=== PATIENT | female | born 1965 | race Native Hawaiian/Other Pacific Islander ===

== ENCOUNTER 2018-01-09 23:46 | Emergency (ER) | payer OTHER ==
[~2018-01-09] VITALS: Ht 160 cm; Wt 56.7 kg
[2018-01-10 01:46] VITALS: BP 146/82
== END 2018-01-10 01:35 | disposition home or self-care (01) ==
LOC: ER 23:46
DX: S61.412A Laceration without foreign body of left hand, initial encounter (principal); W26.8XXA Contact with other sharp object(s), not elsewhere classified, initial encounter; Y92.89 Other specified places as the place of occurrence of the external cause; Y99.0 Civilian activity done for income or pay; Y99.8 Other external cause status

== ENCOUNTER → 2018-01-23 | Outpatient (CLI) | payer OTHER ==
[~2018-01-23] VITALS: Ht 157.5 cm; Wt 56.7 kg
[~2018-01-23] MED LIST: ADVIL200 M3 PO; CENTRUM SILVER1 EAC4 PO; VITAMINC500 PO
--- NOTE | ~2018-01-23 | PATH ---
[facility] [place] [address] PATHOLOGY RPT PROCEDURE Name: VELVETHARVEY Room #: REG [facility].#: [id number] Admission: 01/23/18 Date of : 61 Discharge: Report #: [id number] Path Case #: [id number] [facility] Accession Number: [id number] . 01 Material submitted: . POLYP SPLENIC FLEXURE . 01 Clinical history: . Pre-OP DX: Screening Post-OP DX: Colon polyp . 02 Diagnosis: Colonic mucosa "polyp splenic flexure": - Tubular adenoma with focal high-grade dysplasia. ([facility]:alvaro; 01/24/2018) QMS/01/24/2018 . 02 Comment: The lesion appears completely excised. . This case is also reviewed by Dr. Sami Barragan. . ([facility]:alvaro; 01/24/2018) . 02 Electronically signed: . Geoffrey Bhandari MD, Pathologist NPI- [id number] . 01 Gross description: . Received in formalin labeled "Harvey Verdin, polyp splenic flexure," is a 0.7 x 0.5 x 0.5 cm polypoid piece of hyman soft tissue. The margin is inked and the specimen is sectioned perpendicular to the margin and entirely submitted in cassette A1. ([facility]; 01/23/2018) TOB/TOB . 02 Pathologist provided ICD-10: D12.6 . 02 CPT . 380178 Specimen Comment: A courtesy copy of this report has been sent to Specimen Comment: [phone], . Specimen Comment: Report sent to / DR DE LA FUENTE Specimen Comment: A duplicate report has been generated due to demographic updates. Performed at: [address] [address] PATHOLOGY RPT PROCEDURE Name: HARVEY VERDIN Room #: REG CLPraveen Cosme#: [id number] Admission: 01/23/18 Date of : 61 Discharge: Report #: [id number] Path Case #: [id number] [address] [id number] MD Thad Chairez MD Phone: [phone] Performed at: [address] [id number] MD Amarilis Mcdonald MD Phone: [phone]
== END | disposition home or self-care (01) ==
LOC: GI 11:00
DX: Z12.11 Encounter for screening for malignant neoplasm of colon (principal); D12.3 Benign neoplasm of transverse colon; K64.8 Other hemorrhoids; F32.9 Major depressive disorder, single episode, unspecified; Z98.890 Other specified postprocedural states; Z98.51 Tubal ligation status
CPT/HCPCS: 62110; 62900

== ENCOUNTER → 2019-04-16 | Outpatient (CLI) | payer OTHER | LOC: BC 10:54 | DX: Z12.31 Encounter for screening mammogram for malignant neoplasm of breast (principal) ==

== ENCOUNTER → 2019-05-29 | Outpatient (CLI) | payer OTHER | LOC: ULTRA 09:11 | DX: N60.01 Solitary cyst of right breast (principal); N60.02 Solitary cyst of left breast ==

== ENCOUNTER → 2020-05-29 | Outpatient (CLI) | payer OTHER | LOC: BC 11:48 | PROVIDERS: ATTEND Nurse Practitioner | DX: Z12.31 Encounter for screening mammogram for malignant neoplasm of breast (principal) ==